=== PATIENT | female | born 1980 | race Two or more races ===

== ENCOUNTER 2018-06-11 14:51 | Emergency (ER) | payer MEDICAID ==
[~2018-06-11] VITALS: Ht 142.2 cm; Wt 73.5 kg
[2018-06-11] MEDS ORDERED: Morphine Sulfate 4mg/ml Inj (IV USE ONLY) IVP ONE ×3 (15:00→19:30)
--- NOTE | 2018-06-11 15:01 | Emergency Room Report ---
History of Present Illness General Chief Complaint: Back Pain-No Injury Source: Patient, Family Member, EMS Present Illness HPI The patient presents with right flank pain. This became severe since this morning. However it began yesterday. She took ibuprofen yesterday and it got better. She received fentanyl 50 mg and Zofran in the field. Pain rated 5/10, aching, radiating to buttock area, constant. Feverish, but not documented. No rashes. No NVD. No dysuria. No headache. No chest pain, dyspnea, URI sy. She's never had pain like this before. Not remember what she was doing when pain began. Her last period was 3 months ago. Recent stress with of family member. Anxiety and some depression. Allergies: Coded Allergies: No Known Allergies (Unverified , 06/11/18) Patient History Past Medical History: see triage record Social History: Denies: smoking Social History Narrative with family member - at home Last Menstrual Period: 3 months ago Reviewed Nursing Documentation: PMH: Agreed; PSxH: Agreed Nursing Documentation-PMH Past Medical History: No Stated History Review of Systems All Other Systems: negative except mentioned in HPI Physical Exam Vital Signs Date Time Temp Pulse Resp B/P (MAP) Pulse Ox O2 Delivery O2 Flow Rate FiO2 06/11/18 14:46 97.3 71 16 134/93 96 Room Air 97.3 Sp02 EP Interpretation: reviewed, normal General Appearance: GCS 15, mild distress Head: normocephalic, atraumatic Eyes: bilateral eye normal inspection, bilateral eye PERRL ENT: moist mucus membranes Neck: supple Respiratory: lungs clear, normal breath sounds Cardiovascular #1: regular rate, rhythm Cardiovascular #2: 2+ radial (R) Gastrointestinal: normal inspection, normal bowel sounds, non tender, no mass, non-distended Genitourinary: CVA tenderness (L) Musculoskeletal: digits/nails normal, normal range of motion, other - SLR with tenderness R flank with any movement of LE Neurologic: alert, oriented x3, motor strength/tone normal, DTRs symmetric, sensory intact, speech normal, grossly normal Psychiatric: depressed affect, anxious Skin: normal inspection, warm/dry Medical Decision Making Diagnostic Impression: Primary Impression: Back pain Qualified Codes: M54.9 - Dorsalgia, unspecified Additional Impression: Grief reaction ER Course Patient with L flank pain - severe 2 days. DDx: pyelonephritis, renal stone, muscle strain, UTI, diverticulitis, stress, appendicitis, ectopic amongst others. Evaluation with EKG, labs. Treatment with IV hydration and analgesia. Consideration for u/s or CT. Labs with normal WBC and H/H. CMP normal. UA with ketones and min RBC. Repeated doses of morphine. Due to continued pain, ultrasound ordered. US with non-obstructing stone, no hydro. Much stress. Repeat exam with L lumbar tenderness more than CVA or abdomen. Improved with meds. Discussed findings and need for f/u with MD (not have one at this time). Return if not doing well. Patient stable for outpatient observation and treatment. Laboratory Tests Test 06/11/18 15:00 06/11/18 15:08 White Blood Count 10.0 K/UL (4.8-10.8) Red Blood Count 4.71 M/UL (4.20-5.40) Hemoglobin 13.3 G/DL (12.0-16.0) Hematocrit 39.7 % (37.0-47.0) Mean Corpuscular Volume 84 FL (80-99) Mean Corpuscular Hemoglobin 28.3 PG (27.0-31.0) Mean Corpuscular Hemoglobin Concent 33.6 G/DL (32.0-36.0) Red Cell Distribution Width 12.2 % (11.6-14.8) Platelet Count 253 K/UL (150-450) Mean Platelet Volume 6.8 FL (6.5-10.1) Neutrophils (%) (Auto) 67.4 % (45.0-75.0) Lymphocytes (%) (Auto) 24.9 % (20.0-45.0) Monocytes (%) (Auto) 5.7 % (1.0-10.0) Eosinophils (%) (Auto) 1.4 % (0.0-3.0) Basophils (%) (Auto) 0.6 % (0.0-2.0) Prothrombin Time 10.6 SEC (9.30-11.50) Prothrombin Time INR 1.0 (0.9-1.1) PTT 28 SEC (23-33) Sodium Level 141 MMOL/L (136-145) Potassium Level 3.5 MMOL/L (3.5-5.1) Chloride Level 106 MMOL/L (98-107) Carbon Dioxide Level 27 MMOL/L (21-32) Anion Gap 8 mmol/L (5-15) Blood Urea Nitrogen 14 mg/dL (7-18) Creatinine 0.8 MG/DL (0.55-1.30) Estimate Glomerular Filtration Rate > 60 mL/min (>60) Glucose Level 112 MG/DL (74-106) H Calcium Level 8.5 MG/DL (8.5-10.1) Total Bilirubin 0.3 MG/DL (0.2-1.0) Aspartate Amino Transferase (AST) 27 U/L (15-37) Alanine Aminotransferase (ALT) 51 U/L (12-78) Alkaline Phosphatase 70 U/L (46-116) Total Protein 7.6 G/DL (6.4-8.2) Albumin 3.3 G/DL (3.4-5.0) L Globulin 4.3 g/dL Albumin/Globulin Ratio 0.8 (1.0-2.7) L Lipase 155 U/L (73-393) Urine Color Yellow Urine Appearance Slightly cloudy Urine pH 6 (4.5-8.0) Urine Specific [place] 1.020 (1.005-1.035) Urine Protein 2+ (NEGATIVE) H Urine Glucose (UA) Negative (NEGATIVE) Urine Ketones 1+ (NEGATIVE) H Urine Blood 1+ (NEGATIVE) H Urine Nitrite Negative (NEGATIVE) Urine Bilirubin Negative (NEGATIVE) Urine Urobilinogen 1 MG/DL (0.0-1.0) H Urine Leukocyte Esterase Negative (NEGATIVE) Urine RBC 2-4 /HPF (0 - 2) H Urine WBC 0-2 /HPF (0 - 2) Urine Squamous Epithelial Cells Moderate /LPF (NONE/OCC) H Urine Bacteria Moderate /HPF (NONE) H Urine HCG, Qualitative Negative (NEGATIVE) CT/MRI/US Diagnostic Results CT/MRI/US Diagnostic Results : Imaging Test Ordered: u/s renal Impression 1. Possible 0.3cm right renal nonobstructing nephrolith. 2. Postvoid residual urinary bladder contents 80mL. 3. Minimal bilateral fullness of renal collecting system is noted, this is of uncertain clinical significance. 4. Otherwise sonographically normal study. Last Vital Signs Date Time Temp Pulse Resp B/P (MAP) Pulse Ox O2 Delivery O2 Flow Rate FiO2 06/11/18 19:29 99.0 06/11/18 18:20 16 124/87 96 Room Air 06/11/18 14:46 71 Status: improved Disposition: HOME, SELF-CARE Condition: Improved Scripts Methocarbamol* (ROBAXIN*) 500 Mg Tablet 500 MG PO TID, #10 TAB 0 Refills Prov: Ahsan Chavez M.D. 06/11/18 Ibuprofen* (MOTRIN*) 600 Mg Tablet 600 MG ORAL Q6H PRN for For Pain, #20 TAB Prov: Ahsan Chavez M.D. 06/11/18 Tramadol Hcl* (ULTRAM*) 50 Mg Tablet 50 MG ORAL Q6H PRN for For Pain, #10 TAB 0 Refills Prov: Ahsan Chavez M.D. 06/11/18 Acetaminophen (Tylenol) 325 Mg Tablet 650 MG ORAL Q6H PRN for Prn Pain/Headache/Temp > 101, #20 TAB 0 Refills Prov: Ahsan Chavez M.D. 06/11/18 Ahsan Chavez M.D. Jun 11, 2018 15:01
[2018-06-11 15:37] LABS: BASOPHILS % (AUTO) 0.6 % (0.0-2.0); EOSINOPHILS % (AUTO) 1.4 % (0.0-3.0); HEMATOCRIT 39.7 % (37.0-47.0); HEMOGLOBIN 13.3 G/DL (12.0-16.0); LYMPHOCYTES % (AUTO) 24.9 % (20.0-45.0); MEAN CORPUSCULAR VOLUME 84 FL (80-99); MONOCYTES % (AUTO) 5.7 % (1.0-10.0); NEUTROPHILS % (AUTO) 67.4 % (45.0-75.0); PLATELET COUNT 253 K/UL (150-450); RED BLOOD COUNT 4.71 M/UL (4.20-5.40); RED CELL DISTRIBUTION WIDTH 12.2 % (11.6-14.8)
[2018-06-11 15:41] LABS: APPEARANCE,URINE SLIGHTLY CLOUDY; BILIRUBIN, URINE NEGATIVE (NEGATIVE); GLUCOSE, URINE (UA) NEGATIVE (NEGATIVE); KETONES,URINE 1+ (NEGATIVE); LEUKOCYTE ESTERASE ,URINE NEGATIVE (NEGATIVE); NITRITE,URINE NEGATIVE (NEGATIVE); PH,URINE 6 (4.5-8.0); PROTEIN,URINE 2+ (NEGATIVE); UROBILINOGEN,URINE 1 MG/DL (0.0-1.0)
[2018-06-11 15:43] LABS: COLOR,URINE YELLOW
[2018-06-11 15:46] LABS: ANION GAP 8 mmol/L (5-15); BLOOD UREA NITROGEN 14 mg/dL (7-18); CALCIUM 8.5 MG/DL (8.5-10.1); CARBON DIOXIDE 27 MMOL/L (21-32); CHLORIDE 106 MMOL/L (98-107); CREATININE 0.8 MG/DL (0.55-1.30); POTASSIUM 3.5 MMOL/L (3.5-5.1); SODIUM 141 MMOL/L (136-145)
[2018-06-11 15:50] LABS: ALANINE AMINOTRANSFERASE 51 U/L (12-78); ALBUMIN 3.3 G/DL (3.4-5.0); ALBUMIN/GLOBULIN RATIO 0.8 (1.0-2.7); ALKALINE PHOSPHATASE 70 U/L (46-116); ASPARTATE AMINO TRANSFERASE 27 U/L (15-37); BILIRUBIN,TOTAL 0.3 MG/DL (0.2-1.0)
[2018-06-11] MEDS ORDERED: Ketorolac 30mg Inj IV ONE (16:00)
[2018-06-11 16:48] VITALS: BP 124/87
[2018-06-11 18:20] VITALS: BP 124/87
--- NOTE | 2018-06-11 18:41 | Diagnostic Imaging Report ---
EXAM: US Abdomen Complete CLINICAL HISTORY: PAIN TECHNIQUE: Real-time ultrasound of the abdomen (complete) with image documentation. COMPARISON: No relevant prior studies available. FINDINGS: Liver: Unremarkable. No mass. No intrahepatic bile duct dilation. Gallbladder: Unremarkable. No gallstones. Common bile duct: Unremarkable as visualized. No stones. No dilation. Pancreas: Unremarkable as visualized. Kidneys: Possible 0.3cm right renal nonobstructing nephrolith. Minimal bilateral fullness of renal collecting system is noted, this is of uncertain clinical significance. Right kidney: 12.8 x 6.3 x 6.8 cm Left kidney: 12 4 x 6.0 x 7.1 cm. Spleen: Unremarkable. No splenomegaly. Aorta: Unremarkable. No aneurysm. Inferior vena cava: Unremarkable. Other findings: Postvoid residual urinary bladder contents 80mL. Otherwise sonographically normal study. IMPRESSION: 1. Possible 0.3cm right renal nonobstructing nephrolith. 2. Postvoid residual urinary bladder contents 80mL. 3. Minimal bilateral fullness of renal collecting system is noted, this is of uncertain clinical significance. 4. Otherwise sonographically normal study.
[2018-06-11] MEDS ORDERED: IBUPROFEN600 MG ORAL (20:18)
[2018-06-11] MEDS ORDERED: TRAMADOL HCL50 MG ORAL (20:18)
[2018-06-11] MEDS ORDERED: TYLENOL325 MG ORAL (20:18)
[2018-06-11] MEDS ORDERED: ROBAXIN500 MG PO (20:18)
== END 2018-06-11 18:20 | disposition home or self-care (01) ==
LOC: EDBD 14:51 → EMR 15:16
DX: M54.9 Dorsalgia, unspecified (principal); F43.20 Adjustment disorder, unspecified
CPT/HCPCS: 36415; 76770; 80053; 81003; 81025; 83690; 85025; 85610; 85730; 87086; 96361; 96374; 96375; 99284; J1885; J2270; J2405